=== PATIENT | female | born 2000 | race Caucasian/White ===

== ENCOUNTER 2021-04-28 15:01 | Outpatient (CLI) | payer BC, OTHER ==
[2021-04-28] MEDS ORDERED: OMNIPAQUE 350 MG/ML, 100ML BOTTLE ONE (15:15)
== END 2021-04-28 23:59 | disposition home or self-care (01) ==
LOC: CFH 15:01
PROVIDERS: ATTEND Nurse Practitioner Family
DX: I78.0 Hereditary hemorrhagic telangiectasia (principal)
CPT/HCPCS: 71275; Q9967